=== PATIENT | female | born 1935 | race Caucasian/White ===

== ENCOUNTER 2018-02-14 23:31 | Inpatient (IN) | payer MEDICARE, OTHER ==
[~2018-02-14] VITALS: Ht 160 cm; Wt 71.2 kg
--- NOTE | ~2018-02-14 | H ---
[facility] [place] [address] HISTORY AND PHYSICAL Name: KARINA DOAN Room #: 460-P ADM IN M.R.#: [id number] Admission: 02/15/18 Attend Phys: Luis Suh Discharge: Date of : 39 Report #: [id number] THIS REPORT FOR: //name// CC: FAM unknown Luis Suh DATE OF SERVICE: 02/15/2018 ATTENDING PHYSICIAN: Dr. Suh. PRIMARY CARE PHYSICIAN: Dr. Shayne Wilkerson. CHIEF COMPLAINT: Abdominal pain, nausea, vomiting. HISTORY OF PRESENT ILLNESS: The patient is an 82-year-old female with a history of bowel obstructions, felt to be related to prior radiation treatment for uterine cancer. She has had at least 3 other bowel obstructions which have never required surgical intervention. She stated for the last week, she has been having some intermittent upper abdominal pain and bloating and she felt like she was developing another obstruction. She ended up having increased pain yesterday and then nausea and vomiting in the evening, her pain is mostly in the epigastric area. She did have a large loose stool yesterday that was brown in color, but since then, she has had no bowel movements and has not been passing any flatus. Her pain has been constant. She was initially evaluated at [facility] and noted to have a partial small bowel obstruction. They did not have any General Surgery back up, so she was transferred here for further evaluation. She did have an NG tube placed there and says her distention does feel like it is improving. She has not had any further vomiting episodes. PAST MEDICAL HISTORY: Hypothyroidism, hypertension, uterine cancer, diabetes which is diet controlled, hyperlipidemia, osteoporosis, small-bowel obstruction, nephrolithiasis, and a hepatitis A antibody positive. PAST SURGICAL HISTORY: Cholecystectomy, hysterectomy, appendectomy, tonsillectomy, right total hip replacement. ALLERGIES: ASPIRIN AND CIPRO. HOME MEDICATIONS: Include clonidine patch 0.1 mg weekly, nifedipine 30 mg at bedtime, losartan 100 mg daily, Singulair 10 mg daily, Zofran p.r.n., omeprazole 20 mg b.i.d., levothyroxine 100 mcg daily, vitamin A daily, vitamin C daily, vitamin D daily, multivitamin daily, Tums 1 tab daily and magnesium daily. SOCIAL HISTORY: The patient lives at home with her 2 sisters and one son. She denies any tobacco, alcohol or drug use. [address] [address] HISTORY AND PHYSICAL Name: KARINA DOAN Room #: 460-P [facility] IN [facility]#: [id number] Admission: 02/15/18 Attend Phys: Luis Suh Discharge: Date of : 39 Report #: [id number] FAMILY HISTORY: Her father had diabetes and heart disease. Her mother had Alzheimer's and heart disease. REVIEW OF SYSTEMS: Twelve point review of systems was reviewed with the patient, otherwise negative unless stated in the HPI. PHYSICAL EXAMINATION: GENERAL: The patient is an alert female, in no acute distress. VITAL SIGNS: Temperature 97.7, heart rate 81, respirations 20, blood pressure 167/76, oxygen 93% on room air. HEENT: PERRLA. Sclerae is nonicteric. Oral mucosa is pink and moist. NECK: Supple, no JVD noted. CARDIOVASCULAR: Normal S1, S2. No murmurs, rubs or gallops. RESPIRATORY: Breath sounds are clear bilaterally. No wheezing or rhonchi. Breathing is nonlabored. ABDOMEN: Soft. She is tender in the epigastric area. There is mild distention. Bowel sounds are absent. She does have an NG tube in place that is currently clamped. VASCULAR: No edema noted. Pedal pulses are 2+. NEUROLOGIC: The patient is alert and oriented x 3. Speech is clear. She is moving all extremities equally. No focal neuro deficits noted. LABORATORY DATA AND DIAGNOSTICS: WBC is 12.7, hemoglobin 15.4, platelets 216. Sodium 140, potassium 3.7, BUN 17, creatinine 1.55 and glucose 182. Anion gap of 19. Lactate of 2.5, lipase 128. LFTs were mildly elevated with an AST of 112 and ALT of 81. Bilirubin 2.1. Abdominal x-ray showed no obstruction with a nonspecific bowel gas pattern. Chest x-ray showed no acute changes and CT of the abdomen showed mildly dilated fluid-filled small bowel loops in the proximal and mid small bowel with decompressed distal small bowel loops consistent with a partial small-bowel obstruction. ASSESSMENT AND PLAN: 1. Partial small-bowel obstruction. The patient was transferred for surgical evaluation as she has had multiple bowel obstructions in the past. NG tube has been placed. We will continue with suction for decompression. She will be kept n.p.o., continue IV fluids, antiemetics, and pain control. Her lactate was mildly elevated, possibly due to dehydration as there was no perforation seen on CT. We will continue with fluids and repeat a lactate level this morning. 2. Acute kidney injury. Prior labs from 2016 showed a creatinine of 1.0. This is likely due to vomiting. We will continue IV fluids and follow labs. 3. Diabetes type 2. She states she is diet controlled. Blood sugar was mildly elevated. We will check hemoglobin A1c and add sliding scale insulin and follow Accu-Chek. [address] [place] [address] HISTORY AND PHYSICAL Name: KARINA DOAN Room #: 460-P [facility] IN M.R.#: [id number] Admission: 02/15/18 Attend Phys: Luis Suh Discharge: Date of : 39 Report #: [id number] 4. Hypertension. Blood pressure is elevated. She does have a clonidine patch on which she will continue and continue to monitor blood pressure. Her home blood pressure meds will be on hold while she is n.p.o. 5. Hypothyroidism. Resume Synthroid when able to take p.o. 6. Mild transaminitis, possibly due to dehydration. We will continue with IV fluids and repeat labs in the morning. She does have a history of a cholecystectomy. 7. Deep venous thrombosis prophylaxis, place sequential compression devices. We will continue to follow the patient closely throughout the hospitalization and make changes based on clinical status. <ELECTRONICALLY SIGNED> By: KARI Farr 02/15/18 09 [id number] KARI Farr /nt
[~2018-02-14 23:31] MED LIST: CATAPRES0.1 MG PO; CENTRUM SILVER1 EAC4 PO; COZAAR 50 MG TA50 M1 PO; COZAAR 50 MG TA50 MG PO; FLOVENT HFA 1110 MCG INH; FOLIC ACID 40400 MCG PO; GARLIC1 MG PO; LEVOTHYROXINE 0.1 MG PO; LOPRESSOR50 PO; MAGNESIUM DR64 MG PO; METFORMIN HCL500 MG PO; OMEPRAZOLE20 M2 PO; SINGULAIR 10 MG10 M1 PO; SINGULAIR 10 MG10 MG PO; SLO-NIACIN250 MG PO; TUMS PO; VESICARE 5 MG TA5 MG PO; VITAMIN A8000 UNI1 PO; VITAMIN C1000 MG PO; VITAMIN D32000 UNIT PO; ZANAFLEX4 MG PO; ZOCOR20 MG PO; ZYRTEC10 M4 PO
[2018-02-15 00:59] VITALS: BP 167/76
[2018-02-15] MEDS ORDERED: COZAAR 50 MG TA50 M2 PO (03:00)
[2018-02-15] MEDS ORDERED: CATAPRES-TTS 11 EACH TRANSDERM (03:04)
[2018-02-15] MEDS ORDERED: PROCARDIA XL30 MG PO (03:08)
[2018-02-15] MEDS ORDERED: NITROGLYCERIN0.4 MG SUBLING (03:10)
[2018-02-15] MEDS ORDERED: ONDANSETRON HCL4 M2 SUBLING (03:12)
[2018-02-15 04:05] VITALS: BP 171/86
[2018-02-15 06:12] LABS: HEMATOCRIT 39.6 % (37.0-47.0); HEMOGLOBIN 13.7 gm/dL (12.0-15.0); MCH 29.4 pg (26.0-34.0); MCHC 34.6 g/dL (28.0-37.0); MCV 84.9 fL (80.0-100.0); RBC 4.66 mil/uL (4.20-5.00); WBC 7.8 thou/uL (4.0-11.0)
[2018-02-15 06:49] LABS: ALBUMIN 3.3 g/dL (3.4-5.0); CALCIUM 9.2 mg/dL (8.5-10.1); CREATININE 1.2 mg/dL (0.6-1.0); POTASSIUM 3.9 mmol/L (3.5-5.1); TOTAL BILIRUBIN 1.4 mg/dL (<0.1-1.0)
[2018-02-15 07:38] VITALS: BP 164/64
[2018-02-15 12:15] LABS: GLYCOHEMOGLOBIN (HGB A1C) 6.4 % (4.8-5.6)
[2018-02-15 15:48] VITALS: BP 180/67
[2018-02-15 19:27] VITALS: BP 180/68
[2018-02-16 04:10] VITALS: BP 144/61
[2018-02-16 07:15] LABS: ALBUMIN 2.9 g/dL (3.4-5.0); CALCIUM 8.7 mg/dL (8.5-10.1); CREATININE 1.2 mg/dL (0.6-1.0); MAGNESIUM 1.7 mg/dL (1.8-2.4); POTASSIUM 3.6 mmol/L (3.5-5.1); TOTAL BILIRUBIN 1.3 mg/dL (<0.1-1.0); TOTAL PROTEIN 6.2 g/dL (6.4-8.2)
[2018-02-16 08:00] VITALS: BP 143/56
[2018-02-16] MEDS ORDERED: SENOKOT-S1 TA2 PO (10:32)
[2018-02-16 14:04] VITALS: BP 143/56
== END 2018-02-16 14:20 | disposition home or self-care (01) | DRG 389 ==
LOC: 4W 23:31
PROVIDERS: Hospitalist; Nurse Practitioner Acute Care
DX: K56.600 Partial intestinal obstruction, unspecified as to cause (principal); N17.9 Acute kidney failure, unspecified; E03.9 Hypothyroidism, unspecified; I10 Essential (primary) hypertension; E11.9 Type 2 diabetes mellitus without complications; K21.9 Gastro-esophageal reflux disease without esophagitis; M62.84 Sarcopenia; E78.5 Hyperlipidemia, unspecified; M81.0 Age-related osteoporosis without current pathological fracture; E86.0 Dehydration; Z96.641 Presence of right artificial hip joint; Z85.42 Personal history of malignant neoplasm of other parts of uterus; Z90.49 Acquired absence of other specified parts of digestive tract; Z90.710 Acquired absence of both cervix and uterus; Z98.42 Cataract extraction status, left eye; Z87.442 Personal history of urinary calculi; Z87.81 Personal history of (healed) traumatic fracture; Z79.899 Other long term (current) drug therapy; Z88.1 Allergy status to other antibiotic agents; Z88.6 Allergy status to analgesic agent; Z82.49 Family history of ischemic heart disease and other diseases of the circulatory system; Z83.3 Family history of diabetes mellitus; Z82.0 Family history of epilepsy and other diseases of the nervous system
CPT/HCPCS: 10047